=== PATIENT | female | born 1990 | race Two or more races ===

== ENCOUNTER 2020-08-25 12:00 | Inpatient (IN) | payer OTHER ==
[~2020-08-25] VITALS: Ht 165.1 cm; Wt 93.0 kg
[2020-08-25] MEDS ORDERED: [UNRECOGNIZED DRUG - OTHER] PO (16:25)
[2020-08-25] MEDS ORDERED: MAXFE PO (16:26)
[2020-08-25] MEDS ORDERED: MEGESTROL ACETA40 MG PO (16:26)
== END 2020-09-02 14:14 | disposition home or self-care (01) | DRG 743 ==
LOC: OB/GYN 08-30 10:03 → O/R 08-30 10:03 → OB/GYN 08-30 12:00
PROVIDERS: ADMIT Specialist; ATTEND Specialist
PROC: 0UB90ZZ Excision of Uterus, Open Approach (ICD-10-PCS; principal; 2020-08-30 14:30)
DX: D25.2 Subserosal leiomyoma of uterus (principal)